=== PATIENT | female | born 1975 | race Hispanic/Latino ===

== ENCOUNTER 2019-03-20 23:56 | Inpatient (IN) | payer OTHER, SELFPAY ==
[2019-03-21] MEDS ORDERED: Labetalol HCl 100 MG/20 ML VIAL ONE ×2 (00:22→00:23)
[2019-03-21 00:23] LABS: #Basophils 0.1 thou/uL (0.0-0.2); #Eosinphils 0.1 thou/uL (0.0-0.7); #Monocytes 0.5 thou/uL (0.11-0.59); #Neutrophils 2.7 thou/uL (1.40-6.50); %Basophils 0.9 % (0.0-1.0); %Eosinophils 1.9 % (0.0-10.0); %Lymphocytes 47.3 % (21.0-51.0); %Monocytes 7.4 % (0.0-10.0); %Neutrophils 42.5 % (42.0-75.0); Hemoglobin 15.1 g/dL (12.0-16.0); Mean Corpuscular Hemoglobin 31.1 pg (27.0-31.0); Mean Corpuscular Volume 91.5 fL (78.0-98.0); Mean Platelet Volume 8.8 fL (7.4-10.4); Platelet Count 220 thou/uL (130-400); RBC Distribution Width 11.9 % (11.5-14.5); Red Blood Cell (RBC) Count 4.87 mill/uL (4.20-5.40); White Blood Cell (WBC) Count 6.3 thou/uL (4.8-10.8)
[2019-03-21 00:25] LABS: Prothrombin Time 12.8 SEC (12.0-14.7)
[2019-03-21 00:35] LABS: ALT (SGPT) 21 U/L (8-55); AST (SGOT) 13 U/L (5-34); Albumin 4.4 g/dL (3.5-5.0); Alkaline Phosphatase 115 U/L (40-150); Anion Gap 12 mmol/L (10-20); BUN (Urea Nitrogen) 12 mg/dL (7.0-18.7); Bilirubin, Total 0.3 mg/dL (0.2-1.2); CK (CPK) 37 U/L (29-168); Calc. Creatinine Clearance 0 mL/min (70-130); Calcium 9.9 mg/dL (7.8-10.44); Carbon Dioxide 26 mmol/L (22-29); Chloride 99 mmol/L (98-107); Estimated GFR-MDRD 70; Globulin 3.3 g/dL (2.4-3.5); Glucose 457 mg/dL (70-105); Potassium 4.1 mmol/L (3.5-5.1); Protein, Total 7.7 g/dL (6.0-8.3); Sodium 133 mmol/L (136-145)
[2019-03-21 01:03] LABS: BHCG - Serum Negative (NEGATIVE); Pregs Control Background? CLEAR/WHITE (CLR/WHITE); Pregs Control Bar Appear? YES (CONTROL BAR)
[2019-03-21] MEDS ORDERED: Succinylcholine Chloride 20 MG/ML 10 ml SYRINGE FS ONE (01:22)
[2019-03-21] MEDS ORDERED: Ondansetron PF 4 MG/2 ML Vial ONE (01:22)
[2019-03-21] MEDS ORDERED: fentaNYL Citrate/PF 2,000 MCG in Sodium Chloride 0.9% 60 ML IV SCH (01:34)
[2019-03-21] MEDS ORDERED: Propofol 1,000 MG/100 ML VIAL IV ONE (01:34)
[2019-03-21] MEDS ORDERED: Fentanyl 100 MCG/2 ML VIAL ONE ×2 (01:34→01:41)
[2019-03-21] MEDS ORDERED: Propofol 1,000 MG/100 ML VIAL IV PRN (03:29)
[2019-03-21] MEDS ORDERED: Morphine 2 MG/ML SYRINGE SLOW IVP PRN (03:29)
[2019-03-21] MEDS ORDERED: DISCONTINUE PREVIOUS NARCOTIC PAIN MEDICATIONS AND BENZODIAZEPINES FS SCH (03:29)
[2019-03-21] MEDS ORDERED: Propofol BOLUS 1,000 MG/100 ML VIAL IV PRN (03:29)
[2019-03-21] MEDS ORDERED: Fentanyl BOLUS 250 ML IVPB PRN (03:29)
[2019-03-21] MEDS ORDERED: Lorazepam 2 MG/ML VIAL SLOW IVP PRN (03:29)
[2019-03-21] MEDS ORDERED: CCU Electrolyte Replacement 1 EACH IVPB ONE (03:34)
[2019-03-21] MEDS ORDERED: Bisacodyl 5 MG TAB PO PRN (03:34)
[2019-03-21] MEDS ORDERED: Dextrose 50% Abboject 50 ML SYRINGE SLOW IVP PRN (03:35)
[2019-03-21] MEDS ORDERED: Dextrose 5% in Water 1,000 ML IV PRN (03:35)
[2019-03-21 03:37] LABS: Troponin I Less than 0.010 ng/mL (< 0.028)
[2019-03-21] MEDS ORDERED: Magnesium 2 GM/50 ML 2 GM in Premix Bag 1 BAG IVPB PRN (03:41)
[2019-03-21] MEDS ORDERED: Potassium Chloride 40 MEQ in Premix Bag 1 BAG IVPB PRN (03:41)
[2019-03-21] MEDS ORDERED: Potassium Chloride 40 MEQ in Sodium Chloride 0.9% 250 ML 250 ML IVPB PRN (03:41)
[2019-03-21] MEDS ORDERED: CCU ELECTROLYTE REPLACEMENT PROTOCOL FS PRN (03:41)
[2019-03-21] MEDS ORDERED: Potassium Chloride 20 MEQ TAB PO PRN (03:41)
[2019-03-21] MEDS ORDERED: Magnesium Oxide 400 MG TAB PO PRN ×2 (03:41)
[2019-03-21] MEDS ORDERED: Potassium Phosphate 15 MMOL in Sodium Chloride 0.9% 250 ML 250 ML IV PRN (03:41)
[2019-03-21] MEDS ORDERED: Potassium Phosphate 9 MMOL in Sodium Chloride 0.9% 100 ML IVPB PRN (03:41)
[2019-03-21] MEDS ORDERED: Potassium Phosphate 12 MMOL in Sodium Chloride 0.9% 250 ML 250 ML IV PRN (03:41)
[2019-03-21] MEDS ORDERED: PHOS-NAK 1 PKT PACK PO PRN ×2 (03:41)
[2019-03-21 03:55] VITALS: BMI 24.4
--- NOTE | 2019-03-21 04:12 | HP ---
CHIEF COMPLAINT: Left-sided facial droop and expressive aphasia. HISTORY OF PRESENT ILLNESS: The patient is a 43-year-old female, with a history of diabetes, who presented to the hospital with left-sided facial droop. Per ER, she was found to have facial droop and so she presented to the hospital. At this time, she was within the window period for tPA. She also had bilateral upper extremity and lower extremity weakness according to the ER physician. The patient at this time did have a CTA which did not show any acute infarcts. The patient did receive tPA. However, during tPA infusion, it was noted that the patient started having seizure-like activity. She was loaded with Keppra and also the patient started having significant nausea and vomiting. At this time, the tPA was stopped. The patient at this time for airway protection was intubated by ER. According to the ER notes, she had significant amount of food particles that she threw up. I spoke with the family. Family stated that she was in her normal state until today when she started having left-sided facial droop and generalized weakness. Denied any sick contacts. Denied patient having any nausea, vomiting, or diarrhea prior to her presentation. PAST MEDICAL HISTORY: The patient does have a history of diabetes. PAST SURGICAL HISTORY: She has a history of tubal ligation. SOCIAL HISTORY: Per notes, no alcohol use, drug use, or smoking history. She is a full code. Lives with her family. ALLERGIES: SHE HAS NO KNOWN DRUG ALLERGIES. MEDICATIONS: She takes metformin 1 g twice a day. REVIEW OF SYSTEMS: Unable to obtain. The patient is currently intubated. PHYSICAL EXAMINATION: VITAL SIGNS: Temperature 97.8, 80, 96% on room air. Blood pressure was 148/70. GENERAL: She is currently intubated. Pupils are equal and reactive to light. Normocephalic, atraumatic. No lymphadenopathy noted. CV: S1, S2 present. No murmurs, rubs, or gallops. LUNGS: Clear to auscultation. No rhonchi or wheezes noted. ABDOMEN: Soft. Bowel sounds present x2. EXTREMITIES: No edema. Pedal pulses are present x2. NEUROVASCULAR: The patient is moving all her extremities. Unable to assess the facial droop since the patient is currently intubated. SKIN: No cuts, lesions, or bruises noted. LABORATORY RESULTS: WBCs of 6.3, hemoglobin of 15.1, hematocrit of 44.6, platelets of 220. Sodium of 133, potassium of 4.1, BUN of 12, creatinine 0.87, glucose of 457. Her troponin x2 were negative. TSH was normal. test was negative. Her urine is pending. IMAGING STUDIES: The patient did have a chest x-ray that did not indicate any acute abnormalities. ASSESSMENT AND PLAN: The patient is a very pleasant 43-year-old female who comes into the hospital with left-sided facial droop. 1. Acute respiratory failure. The patient initially came with left-sided facial droop; however, while receiving tPA, had significant amount of nausea, vomiting and to prevent any further distress. The patient was intubated at this time. She most likely possibly even aspirated. I will start her on prophylactic antibiotics for now. The patient currently is on 78% FiO2. The patient also has propofol and fentanyl running. 2. Left-sided facial droop. The patient is status post tPA. I do not believe she received a full dose of tPA while she had significant nausea and vomiting. A repeat CT head was done which did not indicate any acute bleed. I will consult Neurology and continue to monitor. 3. Possible seizure-like activity. She was noted to have seizure-like activity. At this time, she was given some Keppra. I will discontinue her 500 mg of Keppra twice a day IV and Neurology will be consulted. I will also order an EEG on this patient. 4. History of diabetes. We will put the patient on sliding scale insulin and also we will check Accu-Cheks before meals and at bedtime. 5. Deep venous thrombosis prophylaxis. SCDs for now till she is evaluated by Neurology and Pulmonary Critical Care was made aware of the patient's admission. Job ID: [id number]
[2019-03-21] MEDS: HumaLOG 300 UNITS/3 ML VIAL SC PRN ×3 (04:14→18:43)
[2019-03-21] MEDS: Piperacillin/Tazobactam 3.375 GM in Sodium Chloride 0.9% 100 ML IVPB SCH ×4 (04:14→23:20)
[2019-03-21] MEDS ORDERED: levETIRAcetam In NaCl (Iso-Os) 1,000 MG in Premix Bag 1 BAG IVPB SCH (04:15)
--- NOTE | 2019-03-21 08:40 | RAD ---
AP CHEST: HISTORY: Post intubation. CCU followup. COMPARISON: Portable film of 03/21/2019 at 12:40 a.m. FINDINGS: ET tube has been placed. The tip is at the radha and is directed toward the right mainstem bronchus . An NG tube is noted. The lungs appear clear. IMPRESSION: ET tube should be slightly retracted. POS: OFF
--- NOTE | 2019-03-21 08:41 | RAD ---
PORTABLE CHEST: HISTORY: Left-sided facial droop. FINDINGS: Lungs are clear. Heart and mediastinum unremarkable. IMPRESSION: No acute lung process. POS: OFF
[2019-03-21 09:10] LABS: Actual Bicarbonate (HCO3a) 21.8 mEq/L (22-28); Base Excess (BEa) -0.5 mEq/L (-2.0 to +3.0); CO2 Tension 29.6 mmHg (35.0-45.0); Calcium, Ionized 1.17 mmol/L (1.12-1.30); Carboxyhemoglobin (COHb) 0.6 gm% (0.0-3.0); Hemoglobin (Hb) 14.2 g/dL (12.0-16.0); O2 Tension (PaO2) 265.8 mmHg (80.0-100.0); Potassium - ABG Lab 3.56 mmol/L (3.70-5.30); pH, Arterial 7.49 (7.35-7.45)
[2019-03-21 09:11] LABS: Puncture Site RR
[2019-03-21] MEDS ORDERED: DC Sedation Protocol FS ONE (09:37)
[2019-03-21] MEDS: Famotidine/PF 20 mg/2ml Vial SLOW IVP SCH ×2 (09:55→20:52)
[2019-03-21] MEDS ORDERED: ISOVUE-370 76%-LOCM 1 ML ONE (11:06)
--- NOTE | 2019-03-21 11:48 | MRI ---
MRI BRAIN NONCONTRAST: DATE: 03/21/2019 HISTORY: 43-year-old female with seizure-like activity and left facial droop FINDINGS: The ventricles are normal in size and configuration. There is no major intra-axial signal abnormality , restricted diffusion, midline shift or any other mass effect, recent intra-axial hemorrhage, or extra-axial fluid collection. There is a partially empty sella. There is signal abnormality in right mastoid air cells. IMPRESSION: 1. Normal brain. 2. Right mastoid effusion.
[2019-03-21] MEDS ORDERED: Acetaminophen 1,000 MG in Premix Bag 1 BAG IVPB SCH (12:45)
[2019-03-21] MEDS ORDERED: Ondansetron PF 4 MG/2 ML Vial SLOW IVP PRN (12:46)
--- NOTE | 2019-03-21 14:30 | CT ---
CT head without contrast: Multiple axial tomograms obtained through the head without IV enhancement. INDICATIONS: Left facial numbness COMPARISON: CT head earlier today FINDINGS: Ventricles have normal size and position. No evidence of intracranial mass, hemorrhage, edema, or infarct. Visualized sinuses and mastoids appear clear. Bony calvarium appears unremarkable. IMPRESSION: No acute finding. No change from exam earlier today.
--- NOTE | 2019-03-21 16:10 | CON ---
DATE OF CONSULTATION: 03/21/2019 CONSULTING PHYSICIAN: Hospitalist Service. IMPRESSION: 1. Possible stroke. 2. Questionable seizure. PLAN: 1. MRI of the brain. 2. Extubate if possible. 3. Continue Keppra for now. HISTORY OF PRESENT ILLNESS: Ms. Grant is a 43-year-old female, came to the hospital last night complaining of left facial drooping. She had a negative CT scan of the brain and was given tPA. Apparently, she had something that looks similar to a seizure. There was some nausea and vomiting also. She subsequently got intubated and sedated. She is now in the ICU. She has not had any further seizure-like activity. CT scan of the brain was unremarkable. No further history is available from the family. PAST HISTORY: Negative for seizures. ALLERGIES: NONE. SOCIAL HISTORY: Unremarkable. FAMILY HISTORY: Unremarkable. REVIEW OF SYSTEMS: Not obtainable due to her current sedated state. MEDICATIONS: Medication list was reviewed. PHYSICAL EXAMINATION: VITAL SIGNS: Pulse 84, respirations 27, and blood pressure 91/71. HEENT: Pupils are equal. Eyes are conjugate. Conjunctivae clear. She is orally intubated. NECK: No lymphadenopathy. EXTREMITIES: No edema. NEUROLOGIC: She awakens and responds to verbal commands. She seems to move both sides equally well. Plantar responses are downgoing bilaterally. No abnormal movements were seen. LABORATORY DATA: EKG shows sinus rhythm. LABORATORY STUDIES: Unremarkable CBC and serum chemistries other than blood glucose of 346. SUMMARY: This is a 43-year-old woman, who presented with a facial droop and possible seizure. She is now intubated and sedated. The clinical picture is a bit cloudy at this point. We will review her MRI and make further recommendations. Job ID: [id number]
--- NOTE | 2019-03-21 16:15 | CON ---
DATE OF CONSULTATION: 03/21/2019 CONSULTING PHYSICIAN: Graham. REASON FOR CONSULTATION: Respiratory failure. HISTORY OF PRESENT ILLNESS: A 43-year-old female who came in last night with right-sided facial droop. She apparently was complaining of some weakness. She was given tPA in the emergency room for supposed stroke. I do not think her CT angiography of the brain showed any abnormalities. After receiving tPA, she vomited. The ER doctor intubated for respiratory protection and she is currently on mechanical ventilation. PAST MEDICAL HISTORY: Daughter says the patient does not have a history of any type of respiratory issues in the past. She is diabetic. PAST SURGICAL HISTORY: Tubal ligation. SOCIAL HISTORY: Nonsmoker. Does not consume alcohol. ALLERGIES: NONE. MEDICATIONS: Takes metformin 1000 mg twice daily. REVIEW OF SYSTEMS: Otherwise unremarkable. PHYSICAL EXAMINATION: VITAL SIGNS: Temperature is 97.7, pulse 68, blood pressure 124/73, O2 saturations 100%. HEENT: Currently unremarkable. NECK: No JVD. CHEST: Clear. CARDIAC: S1, S2. Regular. ABDOMEN: Soft, nontender. EXTREMITIES: No edema. NEUROLOGIC EXAM: She moves all 4 extremities without difficulty. I cannot really tell anything about facial droop at this time. LABORATORY DATA: White blood cell count 6.3, hematocrit 44.6, and platelet count 220. PH 7.49, pCO2 of 29, pO2 of 265. Sodium 133, potassium 4.1, chloride 99, CO2 of 26, BUN 12, creatinine 0.8, glucose 457. ASSESSMENT: 1. Profound hyperglycemia. 2. Possible stroke. 3. Intubated for airway protection. Now has clear chest x-ray. PLAN: 1. She can be extubated and observed. 2. Further glucose control per the Hospitalist team. 3. Further neurologic workup per Neurology Service. Job ID: [id number]
[2019-03-21] MEDS: Atorvastatin Calcium 40 MG TAB PO SCH (20:53)
[2019-03-22 02:06] LABS: Band 2 % (5-11); Lymphocytes 15 % (21-51); MDiff Complete? YES; Mean Corpuscular HGB CONC 34.7 g/dL (32.0-36.0); Mean Corpuscular Hemoglobin 31.9 pg (27.0-31.0); Mean Corpuscular Volume 91.8 fL (78.0-98.0); Mean Platelet Volume 8.5 fL (7.4-10.4); Monocytes 5 % (0-10); Neutrophil 78 % (42-75); Platelet Count 194 thou/uL (130-400); Platelet Morphology Comment Appears Adequate; RBC Distribution Width 11.9 % (11.5-14.5); RBC Morphology Normal; Red Blood Cell (RBC) Count 4.09 mill/uL (4.20-5.40); White Blood Cell (WBC) Count 8.3 thou/uL (4.8-10.8)
[2019-03-22 02:10] LABS: Troponin I Less than 0.010 ng/mL (< 0.028)
[2019-03-22 02:14] LABS: ALT (SGPT) 17 U/L (8-55); AST (SGOT) 15 U/L (5-34); Albumin 3.8 g/dL (3.5-5.0); Alkaline Phosphatase 77 U/L (40-150); Anion Gap 15 mmol/L (10-20); BUN (Urea Nitrogen) 11 mg/dL (7.0-18.7); Bilirubin, Total 0.8 mg/dL (0.2-1.2); Calc. Creatinine Clearance 95 mL/min (70-130); Calcium 8.8 mg/dL (7.8-10.44); Carbon Dioxide 22 mmol/L (22-29); Chloride 104 mmol/L (98-107); Estimated GFR-MDRD Greater than 90; Globulin 2.5 g/dL (2.4-3.5); Glucose 194 mg/dL (70-105); Potassium 3.6 mmol/L (3.5-5.1); Protein, Total 6.3 g/dL (6.0-8.3); Sodium 137 mmol/L (136-145)
[2019-03-22] MEDS: Piperacillin/Tazobactam 3.375 GM in Sodium Chloride 0.9% 100 ML IVPB SCH (04:55)
[2019-03-22] MEDS: Famotidine/PF 20 mg/2ml Vial SLOW IVP SCH (08:50)
[2019-03-22] MEDS: HumaLOG 300 UNITS/3 ML VIAL SC PRN ×4 (09:12→21:48)
--- NOTE | 2019-03-22 10:39 | PRG ---
DATE OF SERVICE: 03/22/2019 SUBJECTIVE: The patient has done well after extubation, has no complaints. OBJECTIVE: VITAL SIGNS: Temperature is 98.9, pulse 83, blood pressure 109/60, O2 saturation 100%. HEENT: Unremarkable. NECK: No JVD. LUNGS: Clear. CARDIAC: S1 and S2, regular. ABDOMEN: Soft. EXTREMITIES: No edema. LABORATORY DATA: White blood cell count 8.3, hematocrit 37.5, and platelet count 194. Sodium 137, potassium 3.6, BUN 11, creatinine 0.6, glucose 194. ASSESSMENT: 1. Status post possible stroke versus seizure. 2. Status post tPA administration. 3. Intubated because she vomited, but no overt signs of aspiration pneumonia. 4. Diabetes mellitus. PLAN: She will be transferred to the stroke unit for further care. I have stopped the antibiotics. Increase ambulation. Start diet. Pulmonary will sign off. Please recall if needed. Job ID: [id number]
--- NOTE | 2019-03-22 13:38 | CT ---
PRELIMINARY REPORT/[facility]GENT[facility] AFTER-HOURS PROCEDURE CT Head Without Contrast EXAM DATE/TIME: 03/21/2019 1:45 AM CLINICAL HISTORY: 43 years old, female; Signs and symptoms; Other: Posisble seizure; Patient HX: Possible sezire, S/P t pa TECHNIQUE: Imaging protocol: Axial computed tomography images of the head without contrast. COMPARISON: CT Brain WO Con 03/21/2019 12:11 AM FINDINGS: Brain: No intracrainal hemorrhage. No midline shift. The brain parenchyma appears normal for age. Ventricles: No ventriculomegaly. Bones/joints: Unremarkable. No acute fracture. Sinuses: Visualized sinuses are unremarkable. No fluid levels. Mastoid air cells: Visualized mastoid air cells are well aerated. No mastoid effusion. Soft tissues: Unremarkable. IMPRESSION: No acute intracranial abnormality. Thank you for allowing us to participate in the care of your patient. Dictated and Authenticated by: Jorje Horton MD 03/21/2019 1:52 AM Central Time ([place] & [place]) FINAL REPORT CT HEAD WITHOUT CONTRAST: Multiple axial tomograms obtained through the head without IV enhancement. Ventricles have normal si ze and position. No acute intracranial process identified. I am in agreement with the preliminary report. POS: OFF
--- NOTE | 2019-03-22 13:44 | CT ---
PRELIMINARY REPORT/[facility]/EMERGENT[facility] AFTER-HOURS PROCEDURE Addendum created by Jorje Horton MD on 03/21/2019 12:40 AM Central Time ([place] & [place]) CRITICAL RESULT: The study was discussed on the telephone with [QUINTON Kraft on 03/21/2019 12: 40 AM CDT. The results were understood and acknowledged. Initial Report created on 03/21/2019 12:37 AM Central Time ([place] & [place]) CT Angiography Head Without And With Contrast EXAM DATE/TIME: 03/21/2019 12:15 AM CLINICAL HISTORY: 43 years old, female; Signs and symptoms; Speech disturbance; Aphasia; Patient HX: level 1 stroke a lert f45, last seen normal at 2145, family states patient began not feeling good, left sided facial droop started and weakness TECHNIQUE: Imaging protocol: Axial computed tomographic angiography images of the head without and with intraven ous contrast using CT angiography protocol. Coronal and sagittal reformatted images were created and reviewed. 3D rendering: MIP reconstructed images were created and reviewed. Other technique: STROKE PROTOCOL was implemented. COMPARISON: CT Brain WO Con 03/21/2019 12:11 AM FINDINGS: Right internal carotid artery: Unremarkable. Intracranial segment is patent with no significant steno sis. No aneurysm. Right anterior cerebral artery: Unremarkable. No occlusion or significant stenosis. No aneurysm. Right middle cerebral artery: Unremarkable. No occlusion or significant stenosis. No aneurysm. Right posterior cerebral artery: Unremarkable. No occlusion or significant stenosis. No aneurysm. Right vertebral artery: Unremarkable. No occlusion or significant stenosis. No aneurysm. Left internal carotid artery: Unremarkable. Intracranial segment is patent with no significant stenos is. No aneurysm. Left anterior cerebral artery: Unremarkable. No occlusion or significant stenosis. No aneurysm. Left middle cerebral artery: Unremarkable. No occlusion or significant stenosis. No aneurysm. Left posterior cerebral artery: Unremarkable. No occlusion or significant stenosis. No aneurysm. Left vertebral artery: Unremarkable. No occlusion or significant stenosis. No aneurysm. Basilar artery: Unremarkable. No occlusion or significant stenosis. No aneurysm. HEAD: Brain: Unremarkable. No hemorrhage. No significant white matter disease. No edema. Ventricles: Normal. No ventriculomegaly. Bones/joints: Unremarkable. No acute fracture. Sinuses: Visualized sinuses are normal. No fluid levels. Mastoid air cells: Visualized mastoids are normal. No mastoid effusion. Soft tissues: Unremarkable. IMPRESSION: No acute findings. ASSESSMENT: ASPECTS (Fowler Stroke Program Early CT Score) is 10. CT Angiography Neck With Contrast EXAM DATE/TIME: 03/21/2019 12:15 AM TECHNIQUE: Imaging protocol: Axial computed tomographic angiography images of the neck with intravenous contrast using CT angiography protocol. Coronal and sagittal reformatted images were created and reviewed. 3D rendering: MIP reconstructed images were created and reviewed. COMPARISON: CT Brain WO Con 03/21/2019 12:11 AM FINDINGS: VASCULATURE: Right common carotid artery: Normal. No significant stenosis. No dissection or occlusion. Right internal carotid artery: Normal. Extracranial segment is patent with no significant stenosis. No dissection or occlusion. Right external carotid artery: Normal. No occlusion or significant stenosis. Right vertebral artery: Normal. No significant stenosis. No dissection or occlusion. Left common carotid artery: Normal. No significant stenosis. No dissection or occlusion. Left internal carotid artery: Normal. Extracranial segment is patent with no significant stenosis. No dissection or occlusion. Left external carotid artery: Normal. No occlusion or significant stenosis. Left vertebral artery: Normal. No significant stenosis. No dissection or occlusion. NECK: Bones/joints: No acute fracture. Soft tissues: Normal. No significant soft tissue swelling. IMPRESSION: No acute findings. COMMENT: Reference per NASCET criteria for degree of stenosis: Mild: less than 50% stenosis. Moderate: 50-69% stenosis. Severe: 70-94% stenosis. Near occlusion: 95-99% stenosis. Thank you for allowing us to participate in the care of your patient. Dictated and Authenticated by: Jorje Horton MD 03/21/2019 12:37 AM Central Time ([place] & [place]) FINAL REPORT CTA HEAD AND NECK: Multiple axial tomograms are obtained through the head and neck following angio protocol with multipl demetria reconstruction and 3D post processing. CTA HEAD: No evidence of intracranial cerebral artery stenosis or occlusion. No significant abnormality. CTA NECK: Extracranial carotid arteries are unremarkable with no evidence of stenosis. Vertebral arteries are patent with a mildly dominant right vertebral. I am in agreement with the preliminary report. POS: OFF
--- NOTE | 2019-03-22 13:47 | CT ---
PRELIMINARY REPORT/[facility]/EMERGENTY AFTER-HOURS PROCEDURE Addendum created by Jorje Horton MD on 03/21/2019 12:24 AM Central Time ([place] & [place]) CRITICAL RESULT: The study was discussed on the telephone with QUINTON Kraft on 03/21/2019 12:24 AM CDT. The re sults were understood and acknowledged. Initial Report created on 03/21/2019 12:22 AM Central Time ([place] & [place]) CT Head Without Contrast EXAM DATE/TIME: 03/21/2019 12:11 AM CLINICAL HISTORY: 43 years old, female; Signs and symptoms; Weakness, facial; Patient HX: level 1 stroke alert f45, last seen normal at 2145, family states patient began not feeling good, left sided facial droop star [place] and weakness. TECHNIQUE: Imaging protocol: Axial computed tomography images of the head without contrast. Other technique: STROKE PROTOCOL was implemented. COMPARISON: No relevant prior studies available. FINDINGS: Brain: No intracrainal hemorrhage. No midline shift. The brain parenchyma appears normal for age. Ventricles: No ventriculomegaly. Bones/joints: Unremarkable. No acute fracture. Sinuses: Visualized sinuses are unremarkable. No fluid levels. Mastoid air cells: Visualized mastoid air cells are well aerated. No mastoid effusion. Soft tissues: Unremarkable. IMPRESSION: No acute intracranial abnormality. ASSESSMENT: ASPECTS ([place]an Stroke Program Early CT Score) is 10. Thank you for allowing us to participate in the care of your patient. Dictated and Authenticated by: Jorje Horton MD 03/21/2019 12:22 AM Central Time ([place] & [place]) FINAL REPORT CT HEAD WITHOUT CONTRAST: Multiple axial tomograms obtained through the head without IV enhancement. No acute process identified. I am in agreement with the preliminary report. POS: OFF
--- NOTE | 2019-03-22 16:01 | PDOC.PN ---
- Subjective Encounter Start Date: 03/22/19 Encounter Start Time: 08:20 Pt seen for followup re: seizure. Pt awake, alert, answering questions. No complaints. - Objective MAR Reviewed: Yes Vital Signs & Weight: Vital Signs (12 hours) Temp Pulse Resp BP Pulse Ox 03/22/19 15:29 98.4 F 78 16 112/65 96 03/22/19 12:20 96 03/22/19 11:54 98.9 F 80 20 126/66 96 03/22/19 08:00 100 03/22/19 07:14 100 Weight Weight 125 lb 0.034 oz Most Recent Monitor Data Heart Rate from ECG 76 NIBP 106/72 NIBP BP-Mean 83 Respiration from ECG 3 SpO2 100 I&O: 03/21/19 03/22/19 03/23/19 06:59 06:59 06:59 Intake Total 335 658.9 394 Output Total 1240 1605 100 Balance -905 -946.1 294 Result Diagrams: 03/22/19 01:37 03/22/19 01:37 Additional Labs: Accuchecks 03/22/19 03/22/19 03/22/19 11:46 09:13 06:12 POC Glucose 208 H 209 H 198 H 03/21/19 18:31 POC Glucose 241 H EKG Reviewed by me: Yes (Tele: NSR) Phys Exam - Physical Examination Constitutional: NAD HEENT: moist MMs Neck: supple Respiratory: clear to auscultation bilateral Cardiovascular: RRR Gastrointestinal: soft Neurological: moves all 4 limbs Psychiatric: normal affect, A&O x 3 Dx/Plan (1) Seizure Code(s): R56.9 - UNSPECIFIED CONVULSIONS Status: Ruled-out Comment: vs. CVA. MRI negative. continue keppra (2) DM type 2 (diabetes mellitus, type 2) Status: Chronic Qualifiers: Diabetes mellitus complication status: without complication Comment: continue accuchecks, insulin sliding scale (3) Acute respiratory failure Code(s): J96.00 - ACUTE RESPIRATORY FAILURE, UNSP W HYPOXIA OR HYPERCAPNIA Status: Resolved Comment: s/p extubation - Plan * . Review of Systems - Review of Systems Cardiovascular: negative: chest pain, palpitations, orthopnea, paroxysmal nocturnal dyspnea, edema, light headedness Gastrointestinal: negative: Nausea, Vomiting, Abdominal Pain, Diarrhea, Constipation, Melena, Hematochezia Neurological: negative: Weakness, Numbness, Incoordination, Change in Speech, Confusion, Seizures - Medications/Allergies Allergies/Adverse Reactions: Allergies Allergy/AdvReac Type Severity Reaction Status Date / Time No Known Allergies Allergy Verified 03/21/19 04:08 Medications: Current Medications Acetaminophen (Tylenol Elixir) 650 mg PO Q6H PRN PRN Reason: Headache/Fever or Pain Atorvastatin Calcium (Lipitor) 40 mg PO HS KERWIN Last Admin: 03/21/19 20:53 Dose: 40 mg Bisacodyl (Dulcolax) 10 mg PO DAILYPRN PRN PRN Reason: Constipation Dextrose/Water (Dextrose 50%) 25 gm SLOW IVP PRN PRN PRN Reason: Hypoglycemia Enoxaparin Sodium (Lovenox) 40 mg SC 0900 KERWIN Glucagon (Glucagon) 1 mg IM PRN PRN PRN Reason: Hypoglycemia Dextrose/Water (D5w) 1,000 mls @ 0 mls/hr IV .Q0M PRN PRN Reason: Hypoglycemia Insulin Human Lispro (Humalog) 0 units SC .MILD SLIDING SCALE PRN PRN Reason: Mild Correctional Scale Last Admin: 03/22/19 11:46 Dose: 3 unit Levetiracetam (Keppra) 500 mg PO BID [facility] Ccu Electrolyte (Replacement Protocol) 0 each FS PRN PRN PRN Reason: FOR ELECTROLYTE REPLACEMENT Ondansetron HCl (Zofran) 4 mg SLOW IVP Q6H PRN PRN Reason: Nausea
[2019-03-22] MEDS: Acetaminophen 650 MG/20.3 ML UDCUP PO PRN ×2 (16:41→23:11)
[2019-03-22] MEDS: Atorvastatin Calcium 40 MG TAB PO SCH (21:34)
[2019-03-22] MEDS: levETIRAcetam 500 MG TAB PO SCH (21:34)
[2019-03-23] MEDS ORDERED: Ketorolac Tromethamine 30 MG/ML VIAL IVP SCH (01:15)
[2019-03-23] MEDS: HumaLOG 300 UNITS/3 ML VIAL SC PRN ×4 (05:48→20:13)
[2019-03-23] MEDS: Acetaminophen 650 MG/20.3 ML UDCUP PO PRN ×2 (05:55→19:07)
[2019-03-23] MEDS: Enoxaparin Sodium 40 MG/0.4 ML SYRINGE SC SCH (09:15)
[2019-03-23] MEDS: levETIRAcetam 500 MG TAB PO SCH ×2 (09:15→20:08)
--- NOTE | 2019-03-23 16:45 | PDOC.PN ---
- Subjective Encounter Start Date: 03/23/19 Encounter Start Time: 16:43 Pt seen for followup re: seizure. No complaints today. - Objective Vital Signs & Weight: Vital Signs (12 hours) Temp Pulse Pulse Pulse Resp BP BP 03/23/19 15:55 98.3 F 79 16 03/23/19 11:48 97.5 F L 71 16 03/23/19 11:20 74 75 128/67 132/63 03/23/19 11:15 74 75 128/67 132/63 03/23/19 08:00 98.2 F 74 16 BP Pulse Ox 03/23/19 15:55 119/67 98 03/23/19 11:48 109/62 97 03/23/19 11:20 03/23/19 11:15 03/23/19 08:00 109/59 L 97 Weight Weight 125 lb 0.034 oz Most Recent Monitor Data Heart Rate from ECG 76 NIBP 106/72 NIBP BP-Mean 83 Respiration from ECG 3 SpO2 100 I&O: 03/22/19 03/23/19 03/24/19 06:59 06:59 06:59 Intake Total 658.9 694 Output Total 1605 100 Balance -946.1 594 Result Diagrams: 03/22/19 01:37 03/22/19 01:37 Additional Labs: Accuchecks 03/23/19 03/23/19 03/22/19 10:56 05:38 21:07 POC Glucose 206 H 254 H 274 H Phys Exam - Physical Examination Constitutional: NAD HEENT: moist MMs Neck: supple Respiratory: clear to auscultation bilateral Cardiovascular: RRR Gastrointestinal: soft Neurological: moves all 4 limbs Psychiatric: normal affect Dx/Plan (1) Seizure Code(s): R56.9 - UNSPECIFIED CONVULSIONS Status: Acute Comment: continue keppra (2) DM type 2 (diabetes mellitus, type 2) Status: Chronic Qualifiers: Diabetes mellitus complication status: without complication Comment: on accuchecks, insulin sliding scale (3) Acute respiratory failure Code(s): J96.00 - ACUTE RESPIRATORY FAILURE, UNSP W HYPOXIA OR HYPERCAPNIA Status: Resolved - Plan * . Review of Systems - Review of Systems Cardiovascular: negative: chest pain, palpitations, orthopnea, paroxysmal nocturnal dyspnea, edema, light headedness Neurological: negative: Weakness, Numbness, Incoordination, Change in Speech, Confusion, Seizures - Medications/Allergies Allergies/Adverse Reactions: Allergies Allergy/AdvReac Type Severity Reaction Status Date / Time No Known Allergies Allergy Verified 03/21/19 04:08 Medications: Current Medications Acetaminophen (Tylenol Elixir) 650 mg PO Q6H PRN PRN Reason: Headache/Fever or Pain Last Admin: 03/23/19 05:55 Dose: 650 mg Atorvastatin Calcium (Lipitor) 40 mg PO HS [facility] Last Admin: 03/22/19 21:34 Dose: 40 mg Bisacodyl (Dulcolax) 10 mg PO DAILYPRN PRN PRN Reason: Constipation Dextrose/Water (Dextrose 50%) 25 gm SLOW IVP PRN PRN PRN Reason: Hypoglycemia Enoxaparin Sodium (Lovenox) 40 mg SC 0900 [facility] Last Admin: 03/23/19 09:15 Dose: 40 mg Glucagon (Glucagon) 1 mg IM PRN PRN PRN Reason: Hypoglycemia Dextrose/Water (D5w) 1,000 mls @ 0 mls/hr IV .Q0M PRN PRN Reason: Hypoglycemia Insulin Human Lispro (Humalog) 0 units SC .MILD SLIDING SCALE PRN PRN Reason: Mild Correctional Scale Last Admin: 03/23/19 11:07 Dose: 3 unit Levetiracetam (Keppra) 500 mg PO BID [facility] Last Admin: 03/23/19 09:15 Dose: 500 mg Ccu Electrolyte (Replacement Protocol) 0 each FS PRN PRN PRN Reason: FOR ELECTROLYTE REPLACEMENT Ondansetron HCl (Zofran) 4 mg SLOW IVP Q6H PRN PRN Reason: Nausea
[2019-03-23] MEDS: Atorvastatin Calcium 40 MG TAB PO SCH (20:08)
[2019-03-24] MEDS: Acetaminophen 650 MG/20.3 ML UDCUP PO PRN ×2 (01:25→07:42)
[2019-03-24] MEDS: HumaLOG 300 UNITS/3 ML VIAL SC PRN ×3 (06:43→16:46)
[2019-03-24] MEDS: Enoxaparin Sodium 40 MG/0.4 ML SYRINGE SC SCH (07:42)
[2019-03-24] MEDS: levETIRAcetam 500 MG TAB PO SCH (07:42)
[2019-03-24] MEDS ORDERED: Dextrose 50% Abboject 50 ML SYRINGE SLOW IVP PRN (08:18)
[2019-03-24 08:47] LABS: #Eosinphils 0.2 thou/uL (0.0-0.7); #Lymphocytes 2.2 thou/uL (1.20-3.40); #Monocytes 0.4 thou/uL (0.11-0.59); #Neutrophils 2.8 thou/uL (1.40-6.50); %Basophils 0.3 % (0.0-1.0); %Eosinophils 3.5 % (0.0-10.0); %Lymphocytes 38.8 % (21.0-51.0); %Monocytes 7.4 % (0.0-10.0); %Neutrophils 50.1 % (42.0-75.0); Hemoglobin 13.8 g/dL (12.0-16.0); Mean Corpuscular HGB CONC 34.3 g/dL (32.0-36.0); Mean Corpuscular Hemoglobin 30.9 pg (27.0-31.0); Mean Corpuscular Volume 90.3 fL (78.0-98.0); Mean Platelet Volume 8.4 fL (7.4-10.4); Platelet Count 209 thou/uL (130-400); RBC Distribution Width 11.4 % (11.5-14.5); Red Blood Cell (RBC) Count 4.45 mill/uL (4.20-5.40); White Blood Cell (WBC) Count 5.6 thou/uL (4.8-10.8)
[2019-03-24 09:08] LABS: Anion Gap 14 mmol/L (10-20); BUN (Urea Nitrogen) 7 mg/dL (7.0-18.7); Calc. Creatinine Clearance 92 mL/min (70-130); Calcium 9.3 mg/dL (7.8-10.44); Carbon Dioxide 24 mmol/L (22-29); Chloride 103 mmol/L (98-107); Estimated GFR-MDRD Greater than 90; Glucose 227 mg/dL (70-105); Potassium 3.7 mmol/L (3.5-5.1); Sodium 137 mmol/L (136-145)
[2019-03-24 12:24] LABS: Bilirubin Negative (Negative); Blood, Urine Negative (Negative); Clarity CLEAR (Clear); Glucose, Urine (Dipstick) >=1000 mg/dL (Negative); Leukocyte Negative (Negative); Nitrite Negative (Negative); Protein, Urine (Dipstick) Negative (Neg-Trace); Urobilinogen 0.2 mg/dL (0.2-1.0)
[2019-03-24 12:27] LABS: Bacteria/HPF None Seen HPF (None Seen); Pathc Cast-AUWi Flag 3.53 (0-2.49); RBC/HPF 0-3 HPF (0-3); Specific Gravity, Urine 1.043 (1.002-1.036); WBC/HPF 0-3 HPF (0-3); Yeast-AUWi Flag 116.8 (0-25.0)
[2019-03-24 12:37] LABS: Hyaline Casts/LPF 0-3 HYALINE CAST LPF (0-3 Hyaline); Other Casts/LPF None Seen LPF (0-3 Hyaline); Yeast-All Forms 1+ HPF (None Seen)
[2019-03-24 12:38] LABS: Urine Culture Reflex No No
--- NOTE | 2019-03-24 15:06 | PDOC.PN ---
- Subjective Encounter Start Date: 03/24/19 Encounter Start Time: 15:03 Pt seen for followup re: seizure. feels better. Urinating a lot. - Objective MAR Reviewed: Yes Vital Signs & Weight: Vital Signs (12 hours) Temp Pulse Resp BP Pulse Ox 03/24/19 12:00 98 F 74 20 102/61 95 03/24/19 07:47 97.6 F 67 16 112/64 98 03/24/19 04:00 97.6 F 68 16 125/63 96 Weight Weight 125 lb 0.034 oz Most Recent Monitor Data Heart Rate from ECG 76 NIBP 106/72 NIBP BP-Mean 83 Respiration from ECG 3 SpO2 100 I&O: 03/23/19 03/24/19 03/25/19 06:59 06:59 06:59 Intake Total 694 Output Total 100 Balance 594 Result Diagrams: 03/24/19 08:39 03/24/19 08:39 Additional Labs: Accuchecks 03/24/19 03/24/19 03/23/19 10:36 06:05 20:13 POC Glucose 335 H 193 H 379 H 03/23/19 17:59 POC Glucose 336 H EKG Reviewed by me: Yes (Tele: NSR) Phys Exam - Physical Examination Constitutional: NAD HEENT: moist MMs Neck: supple Respiratory: clear to auscultation bilateral Cardiovascular: no rub Gastrointestinal: no distention Neurological: moves all 4 limbs Psychiatric: normal affect Dx/Plan (1) Seizure Code(s): R56.9 - UNSPECIFIED CONVULSIONS Status: Acute Comment: Hold Keppar and observe (2) DM type 2 (diabetes mellitus, type 2) Status: Chronic Qualifiers: Diabetes mellitus complication status: without complication Comment: Blood sugars high, switch to moderate insulin sliding scale, start glipizide and resume metformin. (3) Acute respiratory failure Code(s): J96.00 - ACUTE RESPIRATORY FAILURE, UNSP W HYPOXIA OR HYPERCAPNIA Status: Resolved - Plan * . ischemic cva suspected, s/p tpa Review of Systems - Review of Systems Gastrointestinal: negative: Nausea, Vomiting, Abdominal Pain, Diarrhea, Constipation, Melena, Hematochezia Neurological: negative: Weakness, Numbness, Incoordination, Change in Speech, Confusion, Seizures - Medications/Allergies Allergies/Adverse Reactions: Allergies Allergy/AdvReac Type Severity Reaction Status Date / Time No Known Allergies Allergy Verified 03/21/19 04:08 Medications: Current Medications Acetaminophen (Tylenol Elixir) 650 mg PO Q6H PRN PRN Reason: Headache/Fever or Pain Last Admin: 03/24/19 07:42 Dose: 650 mg Atorvastatin Calcium (Lipitor) 40 mg PO HS [facility] Last Admin: 03/23/19 20:08 Dose: 40 mg Bisacodyl (Dulcolax) 10 mg PO DAILYPRN PRN PRN Reason: Constipation Dextrose/Water (Dextrose 50%) 25 gm SLOW IVP PRN PRN PRN Reason: Hypoglycemia Enoxaparin Sodium (Lovenox) 40 mg SC 0900 [facility] Last Admin: 03/24/19 07:42 Dose: 40 mg Glipizide (Glucotrol Xl) 2.5 mg PO QAM-WM [facility] Glucagon (Glucagon) 1 mg IM PRN PRN PRN Reason: Hypoglycemia Dextrose/Water (D5w) 1,000 mls @ 0 mls/hr IV .Q0M PRN PRN Reason: Hypoglycemia Insulin Human Lispro (Humalog) 0 units SC .MODERATE SLIDING SC PRN PRN Reason: Moderate Correctional Scale Last Admin: 03/24/19 11:48 Dose: 8 unit Metformin HCl (Glucophage) 1,000 mg PO BID-[facility] Ondansetron HCl (Zofran) 4 mg SLOW IVP Q6H PRN PRN Reason: Nausea Sodium Chloride (Flush - Normal Saline) 10 ml IVF Q12HR [facility] Sodium Chloride (Flush - Normal Saline) 10 ml IVF PRN PRN PRN Reason: Saline Flush
[2019-03-24 15:25] VITALS: BP 110/58; TEMP 98.1
[2019-03-24] MEDS ORDERED: metFORMIN 500 MG TAB PO SCH (17:00)
--- NOTE | 2019-03-25 06:48 | DIS ---
DATE OF ADMISSION: 03/21/2019 DATE OF DISCHARGE: 03/24/2019 PRIMARY CARE PROVIDER: Stephie Romero MD DISCHARGE DIAGNOSIS: Seizure. CONDITION OF PATIENT ON THE DAY OF DISCHARGE: Stable. I assessed Ms. Grant on the day of discharge. She denies any chest pain or shortness of breath. Vital signs are stable. S1 and S2 are heard, regular. Lungs are clear to auscultation bilaterally. Neurologic examination is nonfocal. CONSULTATIONS DURING THIS HOSPITALIZATION: 1. Neurology, Isra Gibbons MD. 2. Pulmonary and Critical Care Medicine, Michael Hagen MD. DISCHARGE MEDICATIONS: 1. times a day. 2. Glipizide 2.5 mg daily. 3. Keppra 500 mg 2 times a day. HOSPITAL COURSE: Ms. Grant is a pleasant 43-year-old lady, who was admitted to [facility] on March 21, 2019 for suspected stroke. She received tPA at the time of admission, followed by seizure-like activity. Please refer to Dr. Hamilton's history and physical note dated March 21, 2019 for further details. MRI of the brain was normal. She did have a right mastoid effusion. Repeat CT scan of the brain on March 21 did not show any acute findings. She was initially admitted to Critical Care Unit in an intubated state. She was subsequently extubated and transferred to the stroke floor. She received antiseizure medications in the form of Keppra. There was no further recurrence of seizures. There was no evidence of stroke on any of the imaging studies. CT angiography of [place] was also unremarkable. She was seen by [facility]. She is being discharged home in a stable condition. She is advised to follow up with her primary care provider in 3 to 5 days. On the day of discharge, she has normal electrolytes, normal creatinine, and an unremarkable CBC. During this hospitalization, TSH was normal. Her blood sugars were elevated during this hospitalization, she has been started on glipizide prior to discharge. She is advised to check her blood sugars 2 times a day and show the readings to her primary care provider. Many thanks for allowing me to participate in your patient's care. Please feel free to contact me with any questions or concerns. DISCHARGE DESTINATION: Home. TIME SPENT: Total amount of time spent coordinating this discharge: 32 minutes. 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 She did have neurologic symptoms at the time of presentation. Therefore, she is being discharged on aspirin 325 mg daily and Lipitor 40 mg at bedtime. She has been advised not to start Keppra. DISCHARGE DIAGNOSES: 1. Transient ischemic attack. 2. Pseudoseizure. 3. Acute respiratory failure. Job ID: [id number]
== END 2019-03-24 18:02 | disposition home or self-care (01) | DRG 61 ==
LOC: ERS 23:56 → 2SE 03-21 03:18 → CCU 03-21 03:26 → 2SE 03-22 11:58
PROVIDERS: ADMIT Internal Medicine; ATTEND Internal Medicine
PROC: 3E03317 Introduction of Other Thrombolytic into Peripheral Vein, Percutaneous Approach (ICD-10-PCS; principal; 2019-03-21)
PROC: 5A1935Z Respiratory Ventilation, Less than 24 Consecutive Hours (ICD-10-PCS; 2019-03-21)
PROC: 0BH17EZ Insertion of Endotracheal Airway into Trachea, Via Natural or Artificial Opening (ICD-10-PCS; 2019-03-21)
DX: G45.9 Transient cerebral ischemic attack, unspecified (principal); J96.00 Acute respiratory failure, unspecified whether with hypoxia or hypercapnia; E11.65 Type 2 diabetes mellitus with hyperglycemia; R56.9 Unspecified convulsions; Z79.84 Long term (current) use of oral hypoglycemic drugs
CPT/HCPCS: 36415; 36416; 70450; 70496; 70498; 70551; 71045; 80048; 80053; 81001; 82140; 82550; 82805; 84443; 84484; 84703; 85007; 85025; 85027; 85610; 85730; 93005; 93010; 93306; 94002; J0131; J1650; J1885; J1953; J2405; J2543; J2704; J2997; J3010; J3490; Q9966; S0028